=== PATIENT | female | born 1960 | race American Indian/Alaskan Native ===

== ENCOUNTER 2017-12-08 19:38 | Observation (INO) | payer BC, OTHER ==
[2017-12-08 19:45] VITALS: BMI 42.7
--- NOTE | 2017-12-08 19:58 | ED PDOC ---
Arrival/HPI - General Chief Complaint: Shortness Of Breath Time Seen by Provider: 12/08/17 19:49 Historian: Patient - History of Present Illness Narrative History of Present Illness (Text): 12/08/17 20:06 57 yr old female w/ hx of thyroid issue, HTN, R knee surgery 5+ yrs prior p/w shortness of breath. Pt noted that last night she started having increased nasal congestion and runny nose which ran down her throat. She then noted difficulty breathing this morning. She notes she has a history of bronchitis and that this feel like her bronchitis acting up. She notes wheezes, with some chest tightness this morning. No tearing chest pain, abdominal pain, headache, dizziness or trauma. No history of blood clots, recent surgery / trauma, leg swelling, hemoptysis or hx of cancer. No fever, chills or night sweats. No hx of asthma, COPD or smoking hx. No other complaints. No PMD Past Medical History - Provider Review Nursing Documentation Reviewed: Yes - Travel History Have you recently traveled outside [place] w/in the past 3 mons?: No - Cardiac Hx Hypertension: Yes - Endocrine/Metabolic Hx Hyperthyroidism: Yes - Musculoskeletal/Rheumatological Hx Arthritis: Yes - Psychiatric Hx Substance Use: No Family/Social History - Physician Review Nursing Documentation Reviewed: Yes Family/Social History: Unknown Family HX Smoking Status: Never Smoked Hx Alcohol Use: No Hx Substance Use: No Allergies/Home Meds Allergies/Adverse Reactions: Allergies Penicillins Allergy (Verified 12/08/17 19:45) ANAPHYLAXIS Review of Systems - Review of Systems Constitutional: Fatigue Eyes: Normal ENT: Normal Respiratory: SOB, Cough, Wheezing. absent: Sputum Cardiovascular: Chest Pain Gastrointestinal: Normal Genitourinary Female: Normal Musculoskeletal: Normal Skin: Normal Neurological: Normal Endocrine: Normal Hemo/Lymphatic: Normal Psychiatric: Normal Physical Exam Vital Signs Pulse Resp BP Pulse Ox 12/09/17 01:24 98 H 18 142/83 99 12/08/17 23:39 97 H 18 140/84 99 12/08/17 21:39 104 H 18 139/76 98 12/08/17 20:30 20 99 12/08/17 19:40 110 H 22 138/74 99 - Systems Exam Head: Present: Atraumatic, Normocephalic Pupils: Present: PERRL Extroacular Muscles: Present: EOMI Conjunctiva: Present: Normal Mouth: Present: Moist Mucous Membranes Neck: Present: Normal Range of Motion Respiratory/Chest: Present: Wheezes, Decreased Breath Sounds. No: Respiratory Distress, Accessory Muscle Use, Rales, Retracting, Rhonchi, Tachypneic Cardiovascular: Present: Regular Rate and Rhythm, Normal S1, S2. No: Murmurs Abdomen: No: Tenderness, Distention, Peritoneal Signs Back: Present: Normal Inspection Upper Extremity: Present: Normal Inspection. No: Cyanosis, Edema Lower Extremity: Present: Normal Inspection. No: Edema Neurological: Present: GCS=15, CN II-XII Intact, Speech Normal Skin: Present: Warm, Dry, Normal Color. No: Rashes Psychiatric: Present: Alert, Oriented x 3, Normal Insight, Normal Concentration Medical Decision Making ED Course and Treatment: 12/08/17 20:12 57 yr old F w/ hx of HTN, thyroid issue p/w sob after increased nasal secretions yesterday. Notes it feels like previous bronchitis. Will give duonebs , check labs and get xr. Unlikely PE given no RF, Unlikely ACS given low heart score (CP was not pressure like, did not radiate down arm) EK, sinus tachy, No stemi Heart score: age: 1 RF: 1 EK story: 0 trop: pending 12/08/17 21:05 labs reviewed, hypokalemic, will replete and check magnesium. pending xray read. 12/08/2017 20:56 Chest X-Ray IMPRESSION: No acute findings. Dictator: Alfonso Carter MD Chest X-ray is unremarkable. Will reassess patient at bedside. EKG: Ordered, reviewed, and independently interpreted the EKG. Rate : 99 BPM Rhythm : NSR Interpretation : No STEMI, No ST-segment elevations or depressions, no T-wave inversions, normal intervals. Comparison : No change from previous EKG. 12/08/17 23:[address] Curtis, who accepts patient to be admitted under her service and requests to page Dr. Plasencia. - Lab Interpretations Lab Results: 12/08/17 19:58 12/08/17 19:58 Lab Results 12/08/17 19:58: Magnesium 1.7, NT-Pro-B Natriuret Pep 61.9 12/08/17 19:58: TSH 3rd Generation 3.56 12/08/17 19:58: Sodium 143, Potassium 2.8 L*, Chloride 99, Carbon Dioxide 33, Anion Gap 13, BUN 14, Creatinine 0.7, Est GFR ( Amer) > 60, Est GFR (Non- Af Amer) > 60, Random Glucose 128 H, Calcium 9.3, Total Bilirubin 0.5, AST 40 H , ALT 22, Alkaline Phosphatase 163 H, Lactate Dehydrogenase 404, Total Creatine Kinase 68, Troponin I < 0.01, Total Protein 8.2, Albumin 4.1, Globulin 4.1, Albumin/Globulin Ratio 1.0 L 12/08/17 19:58: PT 13.5 H, INR 1.18, APTT 29.1 12/08/17 19:58: WBC 9.0, RBC 4.20, Hgb 10.1 L, Hct 31.9 L, MCV 76.0 L, MCH 24.0 L, MCHC 31.7, RDW 17.2 H, Plt Count 276, MPV 8.9, Gran % 68.5 H, Lymph % (Auto) 25.8, [place] % (Auto) 5.6, Eos % (Auto) 0.0 L, Baso % (Auto) 0.1, Gran # 6.14, Lymph # (Auto) 2.3, [place] # (Auto) 0.5, Eos # (Auto) 0.0, Baso # (Auto) 0.01 - RAD Interpretation Radiology Orders: 12/08/17 19:53 CHEST PORTABLE [RAD] Stat - Medication Orders Current Medication Orders: Discontinued Medications Acetaminophen (Tylenol 325mg Tab) 650 mg PO STAT STA Stop: 12/09/17 01:07 Last Admin: 12/09/17 01:10 Dose: 650 mg MAR Pain/Vitals Document 12/09/17 01:10 JOL (Rec: 12/09/17 01:38 [id number] Pain Reassessment Is This A Pain ReAssessment? No Sleep Is patient sleeping during reassessment? No Presence of Pain Presence of Pain Yes Pain Scale Used Pain Scale Used Numeric Location Pain Location Body Floor Assembler Intensity 5 Scale Used Numeric Pain Behavior Restlessness Facial Grimacing Albuterol/Ipratropium (Duoneb 3 Mg/0.5 Mg (3 Ml) Ud) 3 ml IH STAT STA Stop: 12/08/17 22:48 Last Admin: 12/08/17 23:20 Dose: 3 ml Methylprednisolone (Solu-Medrol) 125 mg IVP STAT STA Stop: 12/08/17 22:49 Last Admin: 12/08/17 23:20 Dose: 125 mg IVP Administration Document 12/08/17 23:20 MILTON (Rec: 12/09/17 01:01 [place] [id number] Charges for Administration # of IVP Administrations 1 Potassium Chloride (Potassium Chloride Oral Soln) 20 meq PO STAT STA Stop: 12/08/17 20:30 Last Admin: 12/08/17 21:09 Dose: 20 meq Disposition/Present on Arrival - Present on Arrival Any Indicators Present on Arrival: No History of DVT/PE: No History of Uncontrolled Diabetes: No Urinary Catheter: No History of Decub. Ulcer: No History Surgical Site Infection Following: None - Disposition Have Diagnosis and Disposition been Completed?: Yes Diagnosis: Shortness of breath, Hypokalemia Disposition: HOSPITALIZED Disposition Time: 11:30 Condition: GOOD
[2017-12-08 20:19] LABS: INR 1.18; PARTIAL THROMBOPLASTIN TIME 29.1 Seconds (25.1-36.5); PROTHROMBIN TIME 13.5 SECONDS (9.4-12.5)
[2017-12-08 20:23] LABS: TROPONIN I < 0.01 ng/mL
[2017-12-08 20:26] LABS: ALBUMIN 4.1 g/dL (3.0-4.8); ALT/SGPT 22 U/L (7-56); AST/SGOT 40 U/L (14-36); BLOOD UREA NITROGEN 14 mg/dL (7-21); CALCIUM 9.3 mg/dL (8.4-10.5); GFR NON-AFRICAN AMERICAN > 60
[2017-12-08] MEDS ORDERED: Potassium Chloride 20 mEq/15 ml LIQ UD PO STA (20:29)
[2017-12-08 20:41] LABS: BASO # 0.01 K/mm3 (0.0-2.0); BASO % 0.1 % (0.0-3.0); GRAN # 6.14 (1.4-6.5); GRAN % 68.5 % (50.0-68.0); HEMOGLOBIN 10.1 g/dL (12.0-16.0); LYMPH # 2.3 (1.2-3.4); LYMPH % 25.8 % (22.0-35.0); MEAN CORPUSCULAR HGB CONC 31.7 g/dl (31.0-37.0); MEAN PLATELET VOLUME 8.9 fl (7.0-11.0); MONO # 0.5 (0.1-0.6); MONO % 5.6 % (1.0-6.0); RBC 4.2 10^6/uL (3.5-6.1); RED CELL DISTRIBUTION WIDTH 17.2 % (11.5-14.5)
[2017-12-08 21:31] LABS: B-TYPE NATRIURETIC PEPTIDE 61.9 pg/mL (0-450)
[2017-12-08] MEDS ORDERED: Albuterol-Ipratrop 3 mg / 0.5 (3 ml) UD ONE (22:56)
[2017-12-08] MEDS ORDERED: Albuterol-Ipratrop 3 mg / 0.5 (3 ml) UD IH SCH (23:00)
[2017-12-08] MEDS: Albuterol-Ipratrop 3 mg / 0.5 (3 ml) UD IH STA (23:20)
[2017-12-09] MEDS ORDERED: Potassium Chloride 40 mEq/30 ml LIQ UD PO ONE (02:56)
[2017-12-09] MEDS ORDERED: Albuterol-Ipratrop 3 mg / 0.5 (3 ml) UD IH PRN (02:57)
[2017-12-09 08:57] LABS: ALBUMIN 4.3 g/dL (3.0-4.8); ALT/SGPT 12 U/L (7-56); AST/SGOT 28 U/L (14-36); BLOOD UREA NITROGEN 12 mg/dL (7-21); CALCIUM 9.8 mg/dL (8.4-10.5); GFR NON-AFRICAN AMERICAN > 60
[2017-12-09] MEDS: Albuterol-Ipratrop 3 mg / 0.5 (3 ml) UD IH STA (09:49)
[2017-12-09 09:51] LABS: IRON 38 ug/dL (45-180)
[2017-12-09 10:00] LABS: % IRON SATURATION 12 % (20-55); TOTAL IRON BINDING CAPACITY 320 ug/dL (265-497)
[2017-12-09] MEDS ORDERED: MethylPREDNISolone 40 mg Vial IVP SCH (10:00)
--- NOTE | 2017-12-09 10:28 | RAD ---
Date of service: 12/08/2017 HISTORY: Chest pain COMPARISON: No prior. FINDINGS: LUNGS: The lungs are well inflated and clear. PLEURA: No significant pleural effusion identified, no pneumothorax apparent. CARDIOVASCULAR: Normal. OSSEOUS STRUCTURES: No significant abnormalities. VISUALIZED UPPER ABDOMEN: Normal. OTHER FINDINGS: None. IMPRESSION: No active pulmonary disease.
[2017-12-09 12:19] VITALS: RESP 18
[2017-12-09] MEDS: Albuterol-Ipratrop 3 mg / 0.5 (3 ml) UD IH SCH ×2 (13:31→19:21)
--- NOTE | 2017-12-09 14:31 | CARD ---
APPROVED REPORT Date of service: 12/08/2017 EKG Measurement Heart [id number] <Conclusion> Normal sinus rhythm Normal ECG
--- NOTE | 2017-12-09 14:35 | CARD ---
APPROVED REPORT Date of service: 12/08/2017 EKG Measurement Heart [id number] <Conclusion> Sinus tachycardia Otherwise normal ECG
[2017-12-09] MEDS ORDERED: Fluticasone Nasal 50 mcg/Spray NS SCH (15:45)
[2017-12-09 17:24] LABS: FOLATE 17.3 ng/mL
[2017-12-09 18:28] VITALS: BP 164/79; TEMP 98.3; O2SAT 96
[2017-12-09 19:08] VITALS: PULSE 127
--- NOTE | 2017-12-11 08:23 | HP ---
date 12/10/17 copied To: Shi Curtis MD Attending MD: Shi Curtis MD CHIEF COMPLAINT: Coughing, shortness of breath. HISTORY OF PRESENT ILLNESS: Ms. Hamida Lopez is a 57-year-old female with past medical history of thyroid disease, hypertension, right knee surgery 5 years ago, came with shortness of breath and coughing. The patient noted that last night, she started having increased nasal congestion, runny nose which ran down to her throat. She then noted difficulty breathing. She noticed that she has history of bronchitis, and that this feels like her bronchitis acting up. She noted wheezing with some chest tightness, that is why she came to the hospital. No fever. No chills. No headache. No dizziness or trauma. No history of blood clots. No hematemesis. No hematuria. No hematochezia. PAST MEDICAL HISTORY: Hypertension, hyperthyroidism, arthritis. FAMILY HISTORY: Father and mother, noncontributory. HABITS: Never smoked. No drugs. No ethanol. ALLERGIES: PATIENT IS ALLERGIC WITH PENICILLIN. REVIEW OF SYSTEMS: Patient was seen and examined at the bedside in her room. Still coughing, wheezing. No fever. No chills. No headache. No dizziness. No hematuria. No hematochezia. PHYSICAL EXAMINATION: VITAL SIGNS: Temperature 98, heart rate 113, respiratory rate 18, blood pressure 128/79. HEENT: Head: Normocephalic and atraumatic. Eyes: PERRLA. Extraocular muscles intact. Conjunctivae clear. Nose: Patent. Mucous membranes moist. NECK: Supple. No carotid bruit, JVD or thyromegaly. CHEST: Bilaterally symmetrical. HEART: S1 and S2 positive. LUNGS: Clear to auscultation. ABDOMEN: Soft. Bowel sounds present. No organomegaly. EXTREMITIES: No edema. No cyanosis. NEUROLOGIC: Patient is awake and alert. Moving all four extremities. No focal deficit. LABORATORY DATA: White blood cell 9, hemoglobin 10.1, hematocrit 31.9, platelets 279. Sodium 142; potassium on admission was 2.8, after repletion, it is 4; BUN 12, creatinine 0.5, glucose 159. ASSESSMENT AND PLAN: Ms. Hamida Lopez is a 57-year-old lady with anemia; hypokalemia, replaced; hyperglycemia, iron deficiency; abnormal liver function test, trending down; history of thyroid problem, admitted with chest pain, rule out bronchitis. Patient has a history of right knee surgery, shortness of breath. Pulmonary consult called. started. Potassium replaced. We will continue present treatment. Gastrointestinal and deep venous thrombosis prophylaxes. Repeat labs. We will follow up. Shi Curtis MD MTDD
--- NOTE | 2017-12-11 08:56 | CON ---
Copied To: Sydney Carlin APN Attending MD: Marlena Plasencia MD DATE: 12/09/2017 PULMONARY CONSULTATION REFERRING PHYSICIAN: Shi Curtis MD REASON FOR CONSULTATION: Shortness of breath, wheezing, cough, snoring. HISTORY OF PRESENT ILLNESS: This is a 57-year-old female with medical history significant for hypertension, previous knee surgery in the past, HAS SEASONAL ALLERGIES, phlegm. She started symptoms with sneezing and nasal congestion, worsened over the past few days, felt chest pressure and came into the hospital when she was having difficulty breathing, has history of bronchitis, has some rhonchi and wheezing, some chest tightness this morning. This morning, she feels better, sitting up in bed, admits to snoring and daytime sleepiness. No headache, no cough, no chest pain, no nausea, no vomiting, no leg pain, no leg swelling reported. PAST MEDICAL HISTORY: As per history of present illness. ALLERGIES: PENICILLIN. SOCIAL HISTORY: Denies smoking, alcohol, or illicit drug use. MEDICATIONS: Tylenol 650 as needed, ondansetron 4 mg as needed, Solu-Medrol 40 mg IV push every 12 hours, DuoNeb 3 mL as needed every 6 hours, Pepcid 40 mg at night. REVIEW OF SYSTEMS: She has less cough this morning, still has some shortness of breath. Admits to snoring at night. Daytime sleepiness. No headache, no chest pain, no palpitation. No nausea, no vomiting, no leg pain, no leg swelling. PHYSICAL EXAMINATION: VITAL SIGNS: Temperature 98, pulse 113, blood pressure 128/79, respirations 18. GENERAL: Sitting up in bed, no acute distress. HEENT: Moist mucous membrane. Crowded airway. Mallampati plus 4. NECK: Short, thick. No JVD. LUNGS: Expiratory wheezing. CARDIAC: S1 and S2. ABDOMEN: Soft and nontender. No organomegaly. EXTREMITIES: No edema. NEUROLOGIC: Awake, alert, follows commands. LABORATORY DATA: Laboratory results reviewed. Hemoglobin 10.1, hematocrit 31.9, platelets 276, WBC 9. Sodium 142, potassium 4, chloride 102, carbon dioxide 28, anion gap 15, BUN 12, creatinine 0.5, GFR greater than 60. Glucose 169, calcium 9.8, magnesium 1.7, iron 38, TIBC 320, iron saturation 12%, total bilirubin 0.5, AST 28, ALT 12, alkaline phosphatase 154, proBNP 61.9, protein 6.8, albumin 4.3, globulin 4.3, A/G ratio 1. Triglycerides 43, cholesterol 195, LDL 65, HDL 70. EKG, normal sinus rhythm. Chest x-ray, normal. No significant active pulmonary disease reported. IMPRESSION AND PLAN: New onset asthma related to sinusitis and rhinitis, SEASONAL ALLERGIES, obesity, suspected sleep apnea syndrome. We will give the patient Flonase one spray both nostrils twice a day, start antibiotics, Augmentin 875 mg first dose now twice a day. Continue inhaled bronchodilators. Keep head elevated at 45 degrees. Discussed with the patient, we will need full pulmonary function test and formal sleep study as outpatient following discharge. Gastric prophylaxis. This patient was examined with Dr. Plasencia, discussed assessment and plan as described above. Thank you for this consult and we will follow with you. Sydney Carlin APN Marlena Plasencia MD
== END 2017-12-09 22:11 | disposition left against medical advice (07) ==
LOC: ED 19:38 → ERH 23:30 → 2RNO 12-09 02:27 → OBSVTOIN 12-09 17:52 → INTOOBSV 12-09 17:52
PROVIDERS: ADMIT Internal Medicine; ATTEND Internal Medicine
DX: E87.6 Hypokalemia (principal); D50.9 Iron deficiency anemia, unspecified; R73.9 Hyperglycemia, unspecified; I10 Essential (primary) hypertension; J31.0 Chronic rhinitis; J32.9 Chronic sinusitis, unspecified; J45.909 Unspecified asthma, uncomplicated; G47.30 Sleep apnea, unspecified; E66.9 Obesity, unspecified; Z68.41 Body mass index [BMI] 40.0-44.9, adult
CPT/HCPCS: 36415; 71045; 80053; 80061; 82550; 82607; 82746; 83036; 83540; 83550; 83615; 83735; 83880; 84443; 84484; 85025; 85610; 85730; 93005; 94640; 94760; 96374; 99285; G0378; J2920; J2930; J3480